=== PATIENT | female | born 1980 | race American Indian/Alaskan Native ===

== ENCOUNTER 2016-03-31 12:58 | Emergency (ER) | payer MEDICAID ==
[2016-03-31 14:35] LABS: Anion Gap 16 mmol/L; BUN/Creatinine Ratio 18.33; Blood Urea Nitrogen 11 mg/dL (7-17); Calcium 8.8 mg/dL (8.4-10.2); Carbon Dioxide 25 mmol/L (22-30); Chloride 96.9 mmol/L (98-107); Glucose 116 mg/dL (65-100); Potassium 4.1 mmol/L (3.6-5.0); Sodium 134 mmol/L (137-145)
[2016-03-31 14:39] LABS: Basophils % (Auto) 0.3 % (0.0-1.8); Eosinophils % (Auto) 1.3 % (0.0-4.3); Mean Corpuscular HGB Conc 30 % (30-34); Platelet Count 614 K/mm3 (140-440); Red Blood Count 4.62 M/mm3 (3.65-5.03); White Blood Count 7.8 K/mm3 (4.5-11.0)
[2016-03-31 14:43] LABS: Hematocrit 31.1 % (30.3-42.9); Hemoglobin 9.3 gm/dl (10.1-14.3); Mean Corpuscular Hemoglobin 20 pg (28-32); Mean Corpuscular Volume 67 fl (79-97); Red Cell Distribution Width 23.6 % (13.2-15.2)
--- NOTE | 2016-03-31 23:55 | Emergency Department Report ---
HPI - General Chief Complaint: High BP Time Seen by Provider: 03/31/16 13:54 - HPI HPI: The patient is a 35-year-old female presents for evaluation of elevated blood pressure and headache. The patient states that she found her blood pressure to be elevated this a.m. at 166/106. She states that the same time she experienced a mild achy left frontal headache, exacerbated with movement of the head. She states that her headache resolved prior to my evaluation. She states that her headache was not the worst headache of her life, did not wake her from sleep, and was not thunderclap in quality. The patient denies fever, head injury, neck pain or stiffness, vision or hearing changes, smell or taste changes, paresthesias, facial drooping, slurred speech, seizure-like activity, urine or bowel incontinence or retention, or other focal neurological deficit. ED Past Medical Hx - Past Medical History Hx Hypertension: Yes Hx Diabetes: Yes Hx Asthma: Yes - Social History Smoking Status: Never Smoker Substance Use Type: Alcohol - Medications Home Medications: Home Medications Medication Instructions Recorded Confirmed Last Taken Type ALBUTEROL Inhaler [ProAir HFA 2 puff IH QID PRN #1 inhalation 02/05/16 03/31/16 Unknown Rx Inhaler] ALBUTEROL NEB's [Proventil 0.083% 2.5 mg IH QID PRN #1 box 02/05/16 03/31/16 Unknown Rx NEBS] Fluticasone [Flonase] 1 spray NS QDAY #1 bottle 02/05/16 03/31/16 Unknown Rx Fluticasone/Salmeterol [Advair 1 puff IH BID #1 disk.w.dev 02/05/16 03/31/16 Unknown Rx Diskus 500-50 mcg] Losartan/Hydrochlorothiazide 1 tab PO DAILY 03/31/16 03/31/16 Unknown History [Losartan-Hctz 50-12.5 mg Tab] ED Review of Systems ROS: Stated complaint: HIGH BP Other details as noted in HPI Constitutional: denies: fever ENT: denies: throat or neck pain Respiratory: denies: cough, shortness of breath Cardiovascular: denies: chest pain Endocrine: denies unexplained weight loss or gain Gastrointestinal: denies: abdominal pain, nausea Genitourinary: denies: dysuria Musculoskeletal: denies: leg swelling Skin: denies: rash Neurological: denies: headache Hematological/Lymphatic: denies: easy bleeding or easy bruising Psych: denies sadness or hopelessness Physical Exam - Physical Exam Vital Signs: Vital Signs 03/31/16 03/31/16 03/31/16 13:29 17:23 23:41 Temperature 98.1 F Pulse Rate 92 H 95 H 84 Respiratory 20 20 16 Rate Blood Pressure 181/90 Blood Pressure 193/94 168/110 [Right] O2 Sat by Pulse 96 97 95 Oximetry Physical Exam: General: well-nourished, well-developed, patient is morbidly obese Head: Normocephalic, atraumatic Eyes: normal sclera, PERRL, EOM intact ENT: Mucous membranes are pink and moist Neck: trachea midline, neck supple, No neck stiffness, no cervical adenopathy Respiratory: Breath sounds equal bilaterally, no wheezing, rales, or rhonchi Cardio: S1 and S2 present, no murmurs, rubs, gallops, capillary refill is brisk Abdomen: Normoactive bowel sounds, soft abdomen, no tenderness Musc: No pitting edema Skin: No rash Neuro: alert oriented x4, normal cognition, speech normal, no facial drooping, no uvula or tongue deviation on protrusion, no deficit with rotation of neck or shoulder shrug, no obvious gross motor deficit in the upper or lower extremities with flexion or extension at the shoulder, elbow, wrist, hip, knee, or ankle bilaterally, no obvious gross sensation deficit, 2+ symmetric reflexes on DTR testing, no coordination deficit with [id number] or zjym-im-aliv testing, romberg negative, patient able to to ambulate without abnormal gait Psych: Normal affect ED Course Vital Signs 03/31/16 03/31/16 03/31/16 13:29 17:23 23:41 Temperature 98.1 F Pulse Rate 92 H 95 H 84 Respiratory 20 20 16 Rate Blood Pressure 181/90 Blood Pressure 193/94 168/110 [Right] O2 Sat by Pulse 96 97 95 Oximetry ED Medical Decision Making - Lab Data Result diagrams: 03/31/16 14:05 03/31/16 14:05 - Medical Decision Making The patient was seen and examined by myself. The patient is placed on a calculator operator and continuous pulse ox. On initial evaluation, the patient was found to be in no distress. Evaluation orders were placed. The patient declined pain medicine. Lab results are grossly not concerning. On reexamination the patient's blood pressure was found to decrease below range concerning for hypertensive emergency. The patient is stable for discharge with outpatient follow-up. The patient is given follow-up and return instructions. The patient expressed understanding and agreed with the plan. The patient is discharged in stable condition. Critical care attestation.: If time is entered above; I have spent that time in minutes in the direct care of this critically ill patient, excluding procedure time. ED Disposition Clinical Impression: Asymptomatic hypertensive urgency Acute nonintractable headache Qualifiers: Headache type: unspecified Qualified Code(s): R51 - Headache Disposition: DISCHARGED TO HOME OR SELFCARE Is pt being admited?: No Does the pt Need Aspirin: No Condition: Stable Instructions: Chronic Hypertension (ED), Acute Headache (ED) Referrals: MELVIN JACOBSON MD [Primary Care Provider] - 3-5 Days Time of Disposition: 23:52
[2016-04-01 00:05] VITALS: BP 141/91
== END 2016-04-01 00:24 | disposition home or self-care (01) ==
LOC: ED 12:58
DX: I10 Essential (primary) hypertension (principal); R51 Headache; J45.909 Unspecified asthma, uncomplicated; E11.9 Type 2 diabetes mellitus without complications
CPT/HCPCS: 36415; 80048; 82962; 85025; 99284